=== PATIENT | female | born 1960 | race Caucasian/White ===

== ENCOUNTER 2017-03-12 12:43 | Emergency (ER) | payer OTHER | END 2017-03-12 13:27 | disposition home or self-care (01) | LOC: CFTX 12:43 | DX: S61.232A Puncture wound without foreign body of right middle finger without damage to nail, initial encounter (principal); Z23 Encounter for immunization; W54.0XXA Bitten by dog, initial encounter; Y92.89 Other specified places as the place of occurrence of the external cause | CPT/HCPCS: 90471; 90715; 99283 ==